=== PATIENT | male | born 1960 | race Caucasian/White ===

== ENCOUNTER 2024-05-04 03:43 | Inpatient (IN) | payer MEDICARE, MEDICAID ==
[~2024-05-04] VITALS: Ht 165.1 cm; Wt 59.4 kg
[2024-05-04 04:48] LABS: BASOPHILS % 1.1 % (0.0-2.0); EOSINOPHILS % 7.2 % (0.0-5.0); HEMATOCRIT. 38.7 % (42.0-52.0); HEMOGLOBIN. 13.2 g/dL (14.0-18.0); LYMPHOCYTES % 26.5 % (20.0-50.0); MEAN CORPUSCULAR HEMOGLOBIN 33.4 pg (28.0-32.0); MEAN CORPUSCULAR HGB CONC 34.1 g/dL (31.0-37.0); MEAN CORPUSCULAR VOLUME 97.8 fL (80.0-94.0); MEAN PLATELET VOLUME 7.8 fl (7.4-10.4); MONOCYTES % 6.9 % (2.0-8.0); NEUTROPHILS % 58.3 % (40.0-76.0); PLATELET 250 x1000/uL (130-400); RED BLOOD CELL COUNT 3.96 mill/uL (4.7-6.1); RED CELL DISTRIBUTION WIDTH 14.7 % (11.6-14.6)
[2024-05-04 04:56] LABS: CARBON DIOXIDE 29 mEq/L (21-32); CHLORIDE 101 mEq/L (98-107); POTASSIUM 5.9 mEq/L (3.5-5.1); SODIUM 133 mEq/L (136-145)
[2024-05-04 04:57] LABS: CALCIUM 8.6 mg/dL (8.7-10.4)
[2024-05-04 05:01] LABS: CREATININE 0.9 mg/dL (0.6-1.3)
[2024-05-04 05:02] LABS: GLUCOSE 74 mg/dL (70-105); UREA NITROGEN BLOOD 17 mg/dL (9-23)
[2024-05-04 05:03] LABS: ALANINE AMINOTRANSFERASE 333 IU/L (10-49); ALBUMIN 4.1 g/dL (3.2-4.8); ASPARTATE AMINOTRANSFERASE 218 IU/L (<34)
[2024-05-04 05:04] LABS: BILIRUBIN TOTAL 0.4 mg/dL (0.1-1.0); PROTEIN TOTAL 7.7 g/dL (6.0-8.3)
[2024-05-04 06:23] LABS: BILIRUBIN DIRECT < 0.1 mg/dL (<=3.0); T4 FREE < 0.10 ng/dL (0.89-1.76); THYROID STIMULATING HORMONE > 150.00 uIU/mL (0.55-4.78)
[2024-05-04 07:00] LABS: PROTHROMBIN TIME 11.5 sec (9.6-11.0)
[2024-05-04 09:30] VITALS: BP 108/60; PULSE 68; RESP 16; TEMP 36.44736; O2SAT 98
[2024-05-04] MEDS ORDERED: SODIUM POLYSTYRENE SULFONATE 15 G/60 ML BOT PO ONE (11:30)
[2024-05-04] MEDS ORDERED: DIPHENHYDRAMINE 50MG/ML VIAL IV PRN (11:30)
[2024-05-04] MEDS ORDERED: CLONIDINE 0.1MG TABLET PO PRN (11:30)
[2024-05-04] MEDS ORDERED: ONDANSETRON HCL 4MG/2ML INJ IV PRN (11:30)
[2024-05-04] MEDS ORDERED: IPRATROPIUM/ALBUTEROL 0.5-3(2.5)MG/3ML NEB HHN PRN (11:30)
[2024-05-04 11:55] VITALS: BP 108/62; PULSE 68; RESP 16; TEMP 36.4736
[2024-05-04 12:29] VITALS: BP 116/72; PULSE 63; RESP 18; TEMP 36.33624; O2SAT 98
[2024-05-04] MEDS: SODIUM ZIRCONIUM CYCLOSILICATE 10GM/PACKET PO NR (14:09)
[2024-05-04 16:00] VITALS: BP 111/81; PULSE 62; RESP 18; TEMP 36.33624; O2SAT 97
[2024-05-04] MEDS: LEVOTHYROXINE SODIUM 100 MCG/ VIAL IV SCH (16:31)
[2024-05-04] MEDS: CALCIUM CHLORIDE 1GM/10ML SYR IV NR (16:31)
[2024-05-04 19:31] LABS: FOLIC ACID (FOLATE) SERUM 12.17 ng/mL (>5.38)
[2024-05-04 19:32] LABS: VITAMIN B12 SERUM 675 pg/mL (211-911)
[2024-05-04 20:00] VITALS: BP 111/84; RESP 18; TEMP 36.44736; O2SAT 98
[2024-05-04] MEDS: MIRTAZAPINE 15MG TABLET PO SCH (21:43)
[2024-05-04] MEDS: MEMANTINE HCL 10MG TABLET PO SCH (21:43)
[2024-05-04] MEDS: ATORVASTATIN CALCIUM 20MG TABLET PO SCH (21:43)
[2024-05-05] VITALS: BP 119/78; PULSE 67; RESP 20; TEMP 36.3918; O2SAT 97
[2024-05-05 04:00] VITALS: BP 122/81; PULSE 61; RESP 18; TEMP 36.50292; O2SAT 99
[2024-05-05 07:31] LABS: CHLORIDE 101 mEq/L (98-107); POTASSIUM 4.6 mEq/L (3.5-5.1); SODIUM 133 mEq/L (136-145)
[2024-05-05 07:32] LABS: CALCIUM 9.2 mg/dL (8.7-10.4); CARBON DIOXIDE 27 mEq/L (21-32)
[2024-05-05 07:36] LABS: URIC ACID 4.3 mg/dL (3.7-9.2)
[2024-05-05 07:37] LABS: GLUCOSE 73 mg/dL (70-105); UREA NITROGEN BLOOD 22 mg/dL (9-23)
[2024-05-05 07:41] LABS: EOSINOPHILS % 5.8 % (0.0-5.0); HEMATOCRIT. 35.2 % (42.0-52.0); HEMOGLOBIN. 11.8 g/dL (14.0-18.0); LYMPHOCYTES % 32.1 % (20.0-50.0); MEAN CORPUSCULAR HEMOGLOBIN 33.5 pg (28.0-32.0); MEAN CORPUSCULAR HGB CONC 33.6 g/dL (31.0-37.0); MEAN CORPUSCULAR VOLUME 99.8 fL (80.0-94.0); MEAN PLATELET VOLUME 7.4 fl (7.4-10.4); MONOCYTES % 13.2 % (2.0-8.0); NEUTROPHILS % 47.9 % (40.0-76.0); PLATELET 233 x1000/uL (130-400); RED BLOOD CELL COUNT 3.53 mill/uL (4.7-6.1); WHITE BLOOD COUNT 6.2 x1000/uL (4.5-11.0)
[2024-05-05 08:00] VITALS: BP 121/83; PULSE 56; RESP 18; TEMP 36.33624; O2SAT 100
[2024-05-05] MEDS: SERTRALINE HCL 50MG TABLET PO SCH (10:53)
[2024-05-05 12:00] VITALS: BP 104/59; PULSE 67; RESP 18; TEMP 36.3918; O2SAT 98
[2024-05-05 16:00] VITALS: BP 118/67; PULSE 63; RESP 18; TEMP 36.44736; O2SAT 97
[2024-05-05] MEDS: ENOXAPARIN 60MG/0.6ML SYR SUBCUT SCH (19:04)
[2024-05-05 20:00] VITALS: BP 113/62; PULSE 67; RESP 19; TEMP 36.6696; O2SAT 95
[2024-05-06] VITALS: BP 112/60; PULSE 64; RESP 18; TEMP 36.50292; O2SAT 99
[2024-05-06 04:00] VITALS: BP 118/68; PULSE 64; RESP 18; TEMP 36.61404; O2SAT 100
[2024-05-06 08:00] VITALS: BP 100/66; PULSE 64; RESP 18; TEMP 36.05844; O2SAT 97
[2024-05-06 12:00] VITALS: BP 121/50; PULSE 67; RESP 17; TEMP 36.00288; O2SAT 99
[2024-05-06 16:00] VITALS: BP 118/61; PULSE 69; RESP 18; TEMP 36.16956; O2SAT 96
[2024-05-06] MEDS: APIXABAN 5 MG TABLET PO SCH (18:30)
[2024-05-06 20:00] VITALS: BP 108/53; PULSE 65; RESP 18; TEMP 38.00304; O2SAT 96
[2024-05-06] MEDS ORDERED: ACETAMINOPHEN 325MG TABLET PO PRN (21:00)
[2024-05-07] VITALS: BP 131/62; PULSE 76; RESP 19; TEMP 36.3918; O2SAT 100
[2024-05-07 04:00] VITALS: BP 124/76; PULSE 70; RESP 18; TEMP 36.83628; O2SAT 99
[2024-05-07 08:00] VITALS: BP 126/82; PULSE 55; RESP 18; TEMP 36.22512; O2SAT 97
[2024-05-07 12:00] VITALS: BP 112/56; PULSE 59; RESP 18; TEMP 36.05844; O2SAT 99
[2024-05-07 16:00] VITALS: BP 119/60; PULSE 60; RESP 17; TEMP 36.44736; O2SAT 99
[2024-05-07 20:00] VITALS: BP 115/65; PULSE 67; RESP 19; TEMP 36.72516; O2SAT 98
[2024-05-08] VITALS: BP 110/61; PULSE 62; RESP 19; TEMP 36.72516; O2SAT 100
[2024-05-08 04:00] VITALS: BP 105/54; PULSE 54; RESP 19; TEMP 36.61404; O2SAT 100
[2024-05-08 08:00] VITALS: BP 98/48; PULSE 56; RESP 18; TEMP 35.94732; O2SAT 99
[2024-05-08 08:19] LABS: CALCIUM 8.1 mg/dL (8.7-10.4); CARBON DIOXIDE 29 mEq/L (21-32); CHLORIDE 104 mEq/L (98-107); POTASSIUM 4.1 mEq/L (3.5-5.1); SODIUM 136 mEq/L (136-145)
[2024-05-08 08:23] LABS: CREATININE 0.9 mg/dL (0.6-1.3)
[2024-05-08 08:25] LABS: GLUCOSE 73 mg/dL (70-105); UREA NITROGEN BLOOD 17 mg/dL (9-23)
[2024-05-08 08:53] LABS: BASOPHILS % 1.1 % (0.0-2.0); EOSINOPHILS % 11.3 % (0.0-5.0); HEMATOCRIT. 31.7 % (42.0-52.0); HEMOGLOBIN. 10.9 g/dL (14.0-18.0); LYMPHOCYTES % 38.1 % (20.0-50.0); MEAN CORPUSCULAR HEMOGLOBIN 33.8 pg (28.0-32.0); MEAN CORPUSCULAR HGB CONC 34.3 g/dL (31.0-37.0); MEAN CORPUSCULAR VOLUME 98.7 fL (80.0-94.0); MEAN PLATELET VOLUME 7.6 fl (7.4-10.4); MONOCYTES % 9.6 % (2.0-8.0); NEUTROPHILS % 39.9 % (40.0-76.0); PLATELET 228 x1000/uL (130-400); RED BLOOD CELL COUNT 3.21 mill/uL (4.7-6.1); RED CELL DISTRIBUTION WIDTH 14.3 % (11.6-14.6); WHITE BLOOD COUNT 5.2 x1000/uL (4.5-11.0)
[2024-05-08] MEDS ORDERED: MEMA10TA20 MT (11:01)
[2024-05-08] MEDS ORDERED: SERT50TA PO (11:01)
[2024-05-08] MEDS ORDERED: MIRT-89 PO (11:01)
[2024-05-08] MEDS ORDERED: ATOR20TA PO (11:01)
[2024-05-08] MEDS ORDERED: APIX5TAB PO ×2 (11:01)
[2024-05-08] MEDS ORDERED: LEVO150T8 MT (11:01)
[2024-05-08 12:00] VITALS: BP 107/47; PULSE 61; RESP 18; TEMP 36.50292; O2SAT 99
[2024-05-08 16:00] VITALS: BP 118/60; PULSE 59; RESP 16; TEMP 36.61404; O2SAT 99
[2024-05-08 16:40] VITALS: BP 118/60; PULSE 59; TEMP 97.9; O2SAT 99
[2024-05-13] MEDS ORDERED: APIXABAN 5 MG TABLET PO SCH (21:00)
== END 2024-05-08 18:30 | DRG 644 ==
LOC: ER 03:43 → 7EST 06:30 → EDBEDREQ 07:50 → EDBEDREQTM 07:51
PROVIDERS: ADMIT Internal Medicine; ATTEND Internal Medicine
DX: E03.8 Other specified hypothyroidism (principal); E87.1 Hypo-osmolality and hyponatremia; F03.93 Unspecified dementia, unspecified severity, with mood disturbance; K56.600 Partial intestinal obstruction, unspecified as to cause; E83.51 Hypocalcemia; E87.5 Hyperkalemia; E78.00 Pure hypercholesterolemia, unspecified; F32.A Depression, unspecified; G40.909 Epilepsy, unspecified, not intractable, without status epilepticus; I10 Essential (primary) hypertension; I25.10 Atherosclerotic heart disease of native coronary artery without angina pectoris; Q90.9 Down syndrome, unspecified; D64.9 Anemia, unspecified; I45.10 Unspecified right bundle-branch block
CPT/HCPCS: 36415; 71045; 80048; 80061; 80076; 82533; 82607; 82746; 83930; 84439; 84443; 84481; 84550; 85025; 92610; 93005; 93970; 99285; J1650; J3490